=== PATIENT | female | born 1955 | race Caucasian/White ===

== ENCOUNTER 2017-08-01 11:28 | Outpatient (CLI) | payer OTHER ==
[~2017-08-01] VITALS: Ht 162.6 cm; Wt 72.1 kg
[2017-08-01 11:40] VITALS: BP 112/73
[2017-08-01] MEDS ORDERED: ALPR0.5T7 PO (11:44)
[2017-08-01] MEDS ORDERED: AMOX500T2 PO (11:44)
[2017-08-01] MEDS ORDERED: OMEP20TA7 PO (11:44)
[2017-08-01] MEDS ORDERED: TRAZ-28 PO (11:44)
[2017-08-20] MEDS ORDERED: CEPH500C PO (09:38)
[2017-08-20] MEDS ORDERED: HYDR-3812 PO (09:38)
== END 2017-08-01 11:50 | disposition home or self-care (01) ==
LOC: PREOP 11:28
PROVIDERS: ATTEND Podiatrist Foot & Ankle Surgery
DX: Z01.818 Encounter for other preprocedural examination (principal); Z11.2 Encounter for screening for other bacterial diseases; M20.11 Hallux valgus (acquired), right foot; M77.41 Metatarsalgia, right foot
CPT/HCPCS: 87081

== ENCOUNTER 2017-08-20 06:08 | Day surgery (SDC) | payer OTHER ==
[~2017-08-20] VITALS: Ht 162.6 cm; Wt 72.1 kg
[~2017-08-20 06:08] MED LIST: ALPR0.5T7 PO; AMOX500T2 PO; OMEP20TA7 PO; TRAZ-28 PO
[2017-08-20] MEDS ORDERED: ceFAZolin 1,000 MG (ANCEF) VIAL ONE (06:18)
[2017-08-20] MEDS ORDERED: NS (IVPB) 50 ML ONE (06:19)
[2017-08-20] MEDS: LACTATED RINGERS 1,000 ML IV PRN ×2 (06:30→09:15)
[2017-08-20 07:13] VITALS: BP 121/76
[2017-08-20] MEDS ORDERED: SEVOFLURANE (ULTANE) 15 ML INHAL SOLN ONE ×3 (07:13→09:36)
[2017-08-20] MEDS ORDERED: MIDAZOLAM 2 MG/2 ML (VERSED) VIAL ONE (07:13)
[2017-08-20] MEDS ORDERED: DEXAMETHASONE 10 MG/ML (DECADRON) 1 ML VIAL ONE ×2 (07:13→07:18)
[2017-08-20] MEDS ORDERED: proPOfol 200 MG/20 ML (DIPRIVAN) VIAL IV ONE (07:13)
[2017-08-20] MEDS ORDERED: fentaNYL INJECTION 100 MCG/2 ML AMP ONE (07:13)
[2017-08-20] MEDS ORDERED: LIDOCAINE PF 2% 5 ML (XYLOCAINE) VIAL ONE (07:13)
[2017-08-20] MEDS ORDERED: ONDANSETRON 4 MG/2 ML (SDV) Z0FRAN ONE (07:13)
[2017-08-20] MEDS ORDERED: BUPIVACAINE 0.5% 30 ML (SENSORCAINE) VIAL ONE (07:18)
[2017-08-20] MEDS ORDERED: LIDOCAINE 1% INJ 20 ML (XYLOCAINE) VIAL ONE (07:18)
--- NOTE | 2017-08-20 07:37 | Progress Note-Pre Operative ---
Pre-Operative Progress Note H&P Reviewed The H&P was reviewed, patient examined and no changes noted. Date Seen by Provider: Aug 20, 2017 Time Seen by Provider: 07:36 Date H&P Reviewed: Aug 20, 2017 Time H&P Reviewed: 07:36 Pre-Operative Diagnosis: Hallux Valgus, Hypertrophic 2nd Metatarsal, Exostosis , all right foot EMIL IBRAHIM DPM Aug 20, 2017 7:37 am
[2017-08-20] MEDS ORDERED: ceFAZolin 1 GM/NS 50 ML IVPB IV ONE ×2 (08:00)
[2017-08-20] MEDS ORDERED: LACTATED RINGERS 1,000 ML IV ONE (08:55)
[2017-08-20] MEDS ORDERED: LACTATED RINGERS 1,000 ML IV SCH (09:35)
--- NOTE | 2017-08-20 09:35 | Progress Note-Post Operative ---
Post-Operative Progess Note Surgeon (s)/Operator Cavity Pump (s) Surgeon EMIL IBRAHIM DPM Operator Cavity Pump: none Pre-Operative Diagnosis Hallux Valgus, Hypertrophic 2nd Metatarsal, Exostosis, all right foot Post-Operative Diagnosis same Procedure & Operative Findings Date of Procedure 08/20/17 Procedure Performed/Findings Matthieu Bunionectomy, 2nd Metatarsal Osteotomy, Exostectomy, all right foot Anesthesia Type General Estimated Blood Loss Estimated blood loss (mL): Minimal Specimens/Packing Specimens Removed None EMIL IBRAHIM DPM Aug 20, 2017 9:35 am
[2017-08-20] MEDS ORDERED: HYDR-3812 PO (09:38)
[2017-08-20] MEDS ORDERED: CEPH500C PO (09:38)
[2017-08-20] MEDS ORDERED: HYDROcodone/APAP 5 MG/325 MG (LORTAB) TAB PO PRN (09:45)
[2017-08-20] MEDS ORDERED: ONDANSETRON 4 MG/2 ML (SDV) Z0FRAN IVP PRN (09:45)
--- NOTE | 2017-08-20 10:05 | Diagnostic Imaging Report ---
INDICATION: Hallux valgus right foot. 2 postop images of the right foot show changes from osteotomy of the distal aspect of the first metatarsal. There is a pin in the first metatarsal and a small screw present in the head of the second metatarsal. Bones are in good alignment. IMPRESSION: Satisfactory alignment of the right foot following first metatarsal osteotomy. Dictated by: Dictated on workstation # [id number]
[2017-08-20 10:40] VITALS: BP 121/81
[2017-08-20 11:10] VITALS: BP 121/81
[2017-08-20 11:40] VITALS: BP 138/90
--- NOTE | 2017-08-20 11:58 | Physical Therapy Ortho Eval ---
PT Orthopedic Evaluation Type of Surgery Hallux Valgus Prior Level of Function Current Living Status: Other Family Locomotion (Upon Admit): Independent Established Durable Medical Eq: Crutches Subjective Subjective Agrees. Reports she is getting a knee scooter. Entry Into Home: Stairs With Railing Motor Control Motor Control: Motor Control WNL ROM ROM: WFL Strength Strength: WFL Transfer Transfers (B, C, W/C) (FIM): 5 (SBA initially, mod indep at end of treatment) Gait Gait Assistive Device: Crutches Right Lower Extremity: Right Weight Bearing Status RLE: Non Weight Bearing Left Lower Extremity: Left Weight Bearing Status LLE: Weight Bearing/Tolerated Education of WB status; pt demonstrates understanding. Gait (FIM): 5 (SBA with gait with crutches; son present and provides SBA as needed post treatmeht) Distance (FIM): 3=150 ft Summary/Comments Steady on crutches; educated pt on NWB status; as well as safety with crutches. Treatment Rendered Treatment: Gait Train, Step Train Assessment/Goals Goal Time Frame: 1 Visit Safe Ambulation: Yes Training on level surfaces as well as stairs; education on difference walking on carpet as well as safety if crutch tips are wet. discussed use of handrail on steps in conjunction with crutches. Verbalized understanding to all. Educated on knee walker she plans to receive as well. Plan Treatment Plan: Discharge Treatment Duration: 1 visit Visits Per Week: 1 Time Time In: 1130 Time Out: 1155 Total Billed Treatment Time: 25 Billed Treatment Time visit EVL 25 KARLA MARTIN PT Aug 20, 2017 11:58
[2017-08-20 12:00] VITALS: BP 138/90
--- NOTE | 2017-08-20 20:58 | OPERATIVE REPORT ---
DATE OF SERVICE: 08/20/2017 SURGEON: No Brothers DPM PREOPERATIVE DIAGNOSES: 1. Hallux adductus valgus metatarsal primus verus, right. 2. Hypertrophic 2nd metatarsal, right. 3. Exostosis, right 2nd metatarsal cuneiform joint. POSTOPERATIVE DIAGNOSES: 1. Hallux adductus valgus metatarsal primus verus, right. 2. Hypertrophic 2nd metatarsal, right. 3. Exostosis, right 2nd metatarsal cuneiform joint, right. PROCEDURE: 1. Modified Matthieu bunionectomy, right foot. 2. 2nd metatarsal osteotomy, right foot. 3. Exostectomy, right 2nd metatarsal cuneiform joint, right foot. WOUND CLASS: Clean. ANESTHESIA: General. HEMOSTASIS: Pneumatic thigh tourniquet at 250 mmHg. INDICATION: This 62-year-old female presents complaining of a painful right foot. Conservative therapy is met with unsatisfactory results and the patient is agreeable to surgical intervention after risks and complications were discussed at length. No guarantees were extended to the patient and she is willing to proceed. PROCEDURE: The patient was brought back to the operating table, placed in a secure supine position. Appropriate timeout was performed. A pneumatic thigh tourniquet was placed on the right lower extremity over several layers of padding. The right foot was then prepped and draped in the normal sterile manner. The right foot was then elevated and allowed to exsanguinate, after which the tourniquet was inflated to 250 mmHg. Attention was then directed to the dorsal aspect of the right 1st metatarsophalangeal joint where a 5 cm longitudinal linear incision was created. The incision was deepened in the same plane with great care to identify and retract all vital neurovascular structures. All the necessary blood vessels were cauterized as encountered. The incision was deepened down to the capsular tissue where a longitudinal capsulotomy was performed. The capsular tissue was reflected exposing a hypertrophic medial eminence to the 1st metatarsal head, which was resected utilizing a power sagittal saw. Attention was then directed to the dorsal aspect of the 1st metatarsal head where a dorsal prominence was resected with a power sagittal saw. Attention was then directed to the 1st intermetatarsal space where a lateral release was performed to the 1st metatarsophalangeal joint. The conjoined tendon of the adductor hallucis was released as well as the lateral capsulorrhaphy and a release of the fibular sesamoidal ligament. The hallux was then forcibly adducted releasing any additional fibers holding it in its abnormal position. Next, a chevron type osteotomy was performed from medial to lateral with great care to preserve the sesamoidal apparatus. The capital fragment was translocated laterally and fixated in its corrected position utilizing a 0.062 threaded K-wire driven from proximal dorsal to plantar distal across the osteotomy. Excellent bony apposition and fixation was appreciated at this time. The remaining medial eminence to the 1st metatarsal was resected and then smoothed with a power sagittal saw and a power bur. Plantar pressure was applied to the 1st metatarsal noting excellent reduction of the hallux valgus deformity as well as the metatarsal primus varus. The wound was then flushed with copious amounts of normal saline and closure was performed in layers. Deep closure was performed with 3-0 Vicryl, superficial with 4-0 Vicryl, skin closed with 4-0 Prolene in a horizontal mattress type stitch . Attention was then directed to the dorsal aspect of the 2nd metatarsophalangeal joint where a 3 cm longitudinal linear incision was created. The incision was deepened in the same plane with great care to identify and retract all vital neurovascular structures. Only necessary blood vessels were cauterized as encountered. The incision was deepened down to the extensor tendon and extensor garrett. A longitudinal capsulotomy was performed just medial to the extensor tendons. This exposed the hypertrophic head of the 2nd metatarsal. Utilizing a power sagittal saw, a Senthil-type osteotomy was then performed. The capital fragment was translocated proximally and fixated in its corrected position utilizing a 2.0 snap-off screw of 12 mm of length. The wound was flushed with copious amounts of normal saline. The excess bone to the 2nd metatarsal head was removed with a rongeur and contoured with a hand rasp. The wound was flushed once again and closure was then performed in layers. Deep closure was performed with 4-0 Vicryl, superficial with 4-0 Vicryl and skin closure with 4-0 Prolene in a horizontal mattress type stitch. Attention was then directed to the dorsal aspect of the 2nd metatarsal cuneiform joint where a dorsal spur was palpated. Preoperative marking of the dorsalis pedis pulse indicated the incision would be medial to the vital vascular structure. The incision was approximately 2 cm in length and longitudinal for proximal to distal. The incision was deepened in the same plan with great care to identify and retract all vital neurovascular structures. Only necessary blood vessels were cauterized as encountered. The incision was carried down to bone lateral to the extensor hallucis longus. The exostosis was palpated and resected utilizing an osteotome and mallet and was further contoured and smoothed with a power rasp. The wound was flushed with copious amounts of normal saline. The wound was then closed in layers. Deep closure was performed with 3-0 Vicryl, superficial with 4-0 Vicryl, and skin closure with 4-0 Prolene in a horizontal mattress type stitch. Postoperative injection consisted of 20 mL of 0.5% Marcaine injected in a local infusion to the surgical site. Postoperative injection also included 10 mg of dexamethasone, 1/2 of which was to the exostosis site as well as to the 1st intermetatarsal space. Postoperative dressings consisted of Betadine soaked adaptic, sterile 4 x 4's, sterile Kerlix, all secured with a Coban wrap. The patient tolerated the anesthesia and procedure well and was transported from the operating room to the recovery area, vital signs stable, and vascular status intact to all digits of the right foot. Postoperative instructions were given to the patient as well as prescriptions. She was given prescription for Keflex and Vicodin. She is to be [id number] on the right lower extremity with crutches or a scooter. We will see her back in the office in 10 days' period of time, or sooner if necessary. Job ID: [id number] DocumentID: [id number] Dictated Date: 08/20/2017 09:47:25 Mold Shaker Date: 08/20/2017 20:57:48 Dictated By: SANTI ELLISON
== END 2017-08-20 12:00 | disposition home or self-care (01) ==
LOC: SDC 06:08
PROVIDERS: ATTEND Podiatrist Foot & Ankle Surgery
DX: M20.11 Hallux valgus (acquired), right foot (principal); M89.371 Hypertrophy of bone, right ankle and foot; M85.871 Other specified disorders of bone density and structure, right ankle and foot; G47.00 Insomnia, unspecified; K21.9 Gastro-esophageal reflux disease without esophagitis; Z79.899 Other long term (current) drug therapy
CPT/HCPCS: 73620

== ENCOUNTER → 2017-10-12 | Outpatient (CLI) | payer OTHER ==
[~2017-10-12] MED LIST changes: +CEPH500C PO; +HYDR-3812 PO
== END ==
LOC: RAD 15:30
PROVIDERS: ATTEND Nurse Practitioner Family
DX: Z12.31 Encounter for screening mammogram for malignant neoplasm of breast (principal)
CPT/HCPCS: 77067

== ENCOUNTER → 2017-10-22 | Outpatient (CLI) | payer OTHER ==
--- NOTE | 2017-10-22 12:22 | Diagnostic Imaging Report ---
PROCEDURE: MRI left upper extremity without contrast. TECHNIQUE: Multiplanar, multisequence non contrast-enhanced MRI of the left upper extremity was accomplished. INDICATION: Left shoulder pain. FINDINGS: There is no os acromiale or Hill-Sachs deformity. The long head biceps tendon appears to be within its groove. The proximal aspect of the long head biceps tendon demonstrates a longitudinal linear signal abnormality seen on oblique coronal image #11 suggestive of partial longitudinal tear. There is a full-thickness tear with 7 mm of retraction in the supraspinatus anterior fibers and prominent intrasubstance partial tear in the infraspinatus distal tendon. There is a laterally downsloping configuration of the acromion. The acromioclavicular joint demonstrates mild hypertrophy with no significant inferior osteophytes. The subscapularis tendon demonstrates mild thickening distally suggestive of tendinosis. The labrum is not well evaluated on this study without intra-articular contrast. The muscle bulk and signal around the shoulder is normal. There is a 4 mm cyst seen in the subchondral region of the acromion at the AC joint, probably degenerative. No significant marrow signal abnormality is seen otherwise. IMPRESSION: 1. Full-thickness tear of the distal supraspinatus tendon anterior fibers with 7 mm of retraction. 2. Prominent partial tear in the rest of the supraspinatus tendon and in the infraspinatus tendon. 3. Longitudinal linear increased signal along the proximal aspect of the long head biceps tendon suggestive of a longitudinal partial tear. Dictated by: Dictated on workstation # [id number]
== END ==
LOC: RAD 09:32
PROVIDERS: ATTEND Orthopaedic Surgery
DX: M75.102 Unspecified rotator cuff tear or rupture of left shoulder, not specified as traumatic (principal)
CPT/HCPCS: 73221

== ENCOUNTER → 2018-03-14 | Outpatient (CLI) | payer OTHER ==
[~2018-03-14] MED LIST changes: +ACHD5005 PO; -HYDR-3812 PO; +TRAZ-189 PO; -TRAZ-28 PO
--- NOTE | 2018-03-14 11:44 | Diagnostic Imaging Report ---
INDICATION: Osteopenia. Bone mineral analysis lumbar spine and both hips was performed. The bone mineral density of the lumbar spine is 0.924 with a T score of -2.3. Bone mineral density left femoral neck is 0.767 with T score -2.0. Bone mineral density right femoral neck 0.705 with T score of -2.4. IMPRESSION: Findings consistent with osteopenia of the lumbar spine and bilateral femoral necks. Dictated by: Dictated on workstation # [id number]
== END ==
LOC: RAD 10:30
PROVIDERS: ATTEND Family Medicine
DX: M85.88 Other specified disorders of bone density and structure, other site (principal); Z78.0 Asymptomatic menopausal state
CPT/HCPCS: 77080

== ENCOUNTER → 2018-12-18 | Outpatient (CLI) | payer OTHER ==
--- NOTE | 2018-12-18 18:59 | Diagnostic Imaging Report ---
INDICATION: Routine screening. Comparison is made with prior mammogram from 10/12/2017 and 10/04/2016. 2-D and 3-D bilateral screening mammography was performed with a Computer Aided Detection (CAD) system. FINDINGS: Scattered fibroglandular densities are identified bilaterally. The parenchymal pattern is stable. No mass or malignant appearing microcalcifications are seen. Axillae are unremarkable. IMPRESSION: No mammographic features suspicious for malignancy are identified. ACR BI-RADS Category 1: Negative. Result letter will be mailed to the patient. Note: At least 10% of breast cancer is not imaged by mammography. Dictated by: Dictated on workstation # [id number]
== END ==
LOC: RAD 11:29
PROVIDERS: ATTEND Nurse Practitioner Family
DX: Z12.31 Encounter for screening mammogram for malignant neoplasm of breast (principal)
CPT/HCPCS: 77067

== ENCOUNTER → 2020-01-16 | Outpatient (CLI) | payer OTHER ==
[~2020-01-16] MED LIST changes: -TRAZ-189 PO; +TRZ50T PO
--- NOTE | 2020-01-16 13:43 | Diagnostic Imaging Report ---
EXAMINATION: Digital mammogram bilateral screening. The current study was also evaluated with a Computer Aided Detection (CAD) system. 3-D tomosynthesis was also performed and reviewed. INDICATION: Screening. This study was compared to the prior exams of 12/18/2018, 10/12/2017, and 10/04/2016. At this time, there are no current complaints. FINDINGS: There are scattered fibroglandular densities in both breasts which could obscure a lesion. When compared to the prior study, there has been no significant change. There is no primary or secondary sign of malignancy noted. The 3D tomographic views also fail to show any sign of malignancy. IMPRESSION: There is no evidence of malignancy. ACR BI-RADS Category 1: Negative. Result letter will be mailed to the patient. Note: At least 10% of breast cancer is not imaged by mammography. Dictated by: Dictated on workstation # [id number]
== END ==
LOC: RAD 09:57
PROVIDERS: ATTEND Family Medicine
DX: Z12.31 Encounter for screening mammogram for malignant neoplasm of breast (principal)
CPT/HCPCS: 77067

== ENCOUNTER → 2020-04-27 | Outpatient (CLI) | payer OTHER ==
--- NOTE | 2020-04-27 14:09 | Diagnostic Imaging Report ---
INDICATION: Screening for osteoporosis. COMPARISON: 03/14/2018. FINDINGS: The bone mineral density of the spine and hips was measured. T score for the spine is -2.3. This is no different than on the prior exam. The total T score for the left hip is -1.5 and for the right hip -1.7. On the prior exam, the respective T scores were -1.7 and -2.0. The T score for the left femoral neck is -2.0. This is unchanged when compared to the prior exam. The T score for the right femoral neck is -2.1 as opposed to -2.4 previously. AP Spine L1-L4: [BMD (g/cm2): 0.925] [T-Score: -2.3] [Z-Score: -1.2] [BMD Previous: 0.924] [BMD % Change: 0.1] LT Hip Neck: [BMD (g/cm2): 0.760] [T-Score: -2.0] [Z-Score: -0.8] LT Hip Total: [BMD (g/cm2):0.813] [T-Score:-1.5] [Z-Score: -0.7] [BMD Previous: 0.795] [BMD % Change: 2.3] RT Hip Neck: [BMD (g/cm2):0.747] [T-Score:-2.1] [Z-Score:-0.9] RT Hip Total: [BMD (g/cm2):0.787] [T-score:-1.7] [Z-Score:-0.9] [BMD Previous:0.758] [BMD % Change:3.8] *Indicates significant change from prior examination based on 95% confidence level. World Health Organization criteria for BMD interpretation classify patients as Normal (T-score at or above -1.0), Osteopenic (T-score between -1.0 and -2.5) or Osteoporotic (T-score at or below -2.5). LIMITATIONS AND MODIFICATION: None. FRACTURE RISK (FRAX SCORE): The ten year probability of (%): Major Osteoporotic Fracture: [17.5] Hip Fracture: [2.7] IMPRESSION: 1. The bone mineral density in the spine is unchanged when compared to the prior exam. The T score value does indicate severe osteopenia. 2. There has been a slight increase in the bone mineral density of the hips. The T score values still remain within the range of osteopenia. 3. See below National Osteoporosis Foundation guidelines on when to potentially initiate pharmacologic therapy. Based on the National Osteoporosis Foundation Guidelines, pharmacologic treatment should be initiated in any of the following, unless clinical conditions suggest otherwise: * Any patient with prior fragility fracture of the hip or vertebrae. A spine fracture indicates 5X risk for subsequent spine fracture and 2X risk for subsequent hip fracture. * Osteoporosis (T-score <-2.5). * Postmenopausal women and men age 50 and older with low bone mass/osteopenia (T-score between -1.0 and -2.5) by DXA and 10-year major osteoporotic fracture greater than 20% or a 10-year probability of hip fracture greater than 3%. These fracture risks are supplied above in the FRAX score, if applicable. * Clinician judgement and/or patient preferences may indicate treatment for people with 10-year fracture probabilities above or below these levels. Dictated by: Dictated on workstation # [id number]
== END ==
LOC: RAD 13:20
PROVIDERS: ATTEND Family Medicine
DX: Z13.820 Encounter for screening for osteoporosis (principal); M85.89 Other specified disorders of bone density and structure, multiple sites
CPT/HCPCS: 77080

== ENCOUNTER → 2021-02-18 | Outpatient (CLI) | payer OTHER ==
--- NOTE | 2021-02-18 10:20 | Diagnostic Imaging Report ---
EXAMINATION: Bilateral screening mammogram with CAD. INDICATION: Screening. COMPARISON: This study was compared to the prior exams of 01/16/2020, 12/18/2018, and 10/12/2017. PERSONAL HISTORY: At this time, there are no current complaints. FINDINGS: There are scattered fibroglandular densities in both breasts which could obscure a lesion. Overall, there does not appear to have been any significant change when compared to the prior exam. No primary or secondary sign of malignancy is noted. IMPRESSION: There is no radiographic evidence for malignancy. ACR BI-RADS Category 1: Negative. Result letter will be mailed to the patient. Note: At least 10% of breast cancer is not imaged by mammography. Dictated by: Dictated on workstation # [id number]
== END ==
LOC: RAD 08:55
PROVIDERS: ATTEND Nurse Practitioner Family
DX: Z12.31 Encounter for screening mammogram for malignant neoplasm of breast (principal)
CPT/HCPCS: 77063; 77067

== ENCOUNTER → 2022-02-20 | Outpatient (CLI) | payer OTHER ==
--- NOTE | 2022-02-20 15:40 | Diagnostic Imaging Report ---
INDICATION: Routine screening. COMPARISON is made with prior mammograms from 02/18/2021 and 01/16/2020. 2-D and 3-D bilateral screening mammography was performed with CAD. Scattered fibroglandular densities are identified bilaterally. The parenchymal pattern is stable. No mass or malignant-appearing microcalcifications are seen. Axillae are unremarkable. IMPRESSION: BI-RADS Category 1 No mammographic features suspicious for malignancy are identified. ACR BI-RADS Category 1: Negative. Result letter will be mailed to the patient. Note: At least 10% of breast cancer is not imaged by mammography. Dictated by: Dictated on workstation # [id number]
== END ==
LOC: RAD 14:30
PROVIDERS: ATTEND Nurse Practitioner Family
DX: Z12.31 Encounter for screening mammogram for malignant neoplasm of breast (principal)
CPT/HCPCS: 77063; 77067

== ENCOUNTER → 2022-07-14 | Outpatient (CLI) | payer MEDICARE ==
[~2022-07-14] MED LIST changes: +OMEP20TA56 PO; -OMEP20TA7 PO
--- NOTE | 2022-07-14 09:17 | Diagnostic Imaging Report ---
INDICATION: Abdominal pain. PROCEDURE: Ultrasound abdomen complete. TECHNIQUE: Multiple real-time grayscale images were obtained of the abdomen in various projections. FINDINGS: Liver is normal in size at 16 cm. The portal vein is patent and shows normal direction of flow. No liver mass is detected. Gallbladder is surgically absent. There is no biliary ductal dilatation. Pancreas is unremarkable. Spleen is normal in size at 10.3 cm. Abdominal aorta is nonaneurysmal. IVC is patent. Right kidney measures 10.1 cm in length and the left kidney measures 10.6 cm in length. No calculi or hydronephrosis is identified. There is no ascites. IMPRESSION: Status post cholecystectomy. No acute abnormality is detected. Dictated by: Dictated on workstation # [id number]
--- NOTE | 2022-07-14 09:48 | Diagnostic Imaging Report ---
INDICATION: Palpable abdominal aorta. Proximal abdominal aorta measures 1.8 cm AP by 2.0 cm transverse. The mid abdominal aorta measures 1.7 cm AP by 1.6 cm transverse. The distal abdominal aorta measures 1.3 cm AP by 1.5 cm transverse. The right iliac measures 0.8 x 0.8 cm and the left iliac measures 0.9 x 0.9 cm. IMPRESSION: No evidence of abdominal aortic aneurysm. Dictated by: Dictated on workstation # [id number]
== END ==
LOC: RAD 07:38
PROVIDERS: ATTEND Family Medicine
DX: R10.9 Unspecified abdominal pain (principal); Z90.49 Acquired absence of other specified parts of digestive tract
CPT/HCPCS: 76700; 76775

== ENCOUNTER 2022-07-27 05:37 | Outpatient (CLI) | payer MEDICARE ==
[~2022-07-27] VITALS: Ht 160 cm; Wt 72.1 kg
== END 2022-07-27 10:59 | disposition home or self-care (01) ==
LOC: PREOP 05:37
PROVIDERS: ATTEND Surgery
DX: Z01.818 Encounter for other preprocedural examination (principal)

== ENCOUNTER 2022-08-07 08:15 | Day surgery (SDC) | payer MEDICARE ==
[~2022-08-07] VITALS: Ht 160 cm; Wt 72.1 kg
[2022-08-07 08:20] VITALS: BP 106/56
[2022-08-07] MEDS ORDERED: LACTATED RINGERS 1,000 ML IV STA (08:34)
--- NOTE | 2022-08-07 08:35 | Progress Note-Pre Operative ---
Pre-Operative Progress Note Date of Available H&P: Jul 25, 2022 Date H&P Reviewed: Aug 07, 2022 Time H&P Reviewed: 08:33 History & Physical: H&P Reviewed, Patient Examed, No changes noted Pre-Operative Diagnosis: Epigastric pain ELMA AVENDANO DO Aug 07, 2022 08:35
[2022-08-07] MEDS ORDERED: HURRICAINE EXT TUBE (BENZOCAINE) XX PRN (08:45)
[2022-08-07] MEDS ORDERED: PROPOFOL INJECTION 50 ML IV ONE (10:43)
[2022-08-07] MEDS ORDERED: MIDAZOLAM 2 MG/2 ML (VERSED) VIAL ONE (10:43)
--- NOTE | 2022-08-07 10:57 | Progress Note-Post Operative ---
Post-Operative Progess Note Surgeon (s)/Electrical Maintenance Supervisor (s) Surgeon ELMA AVENDANO DO Electrical Maintenance Supervisor: none Pre-Operative Diagnosis Epigastric pain Post-Operative Diagnosis Gastritis with bleeding Hiatal hernia Procedure & Operative Findings Date of Procedure 08/07/22 Procedure Performed/Findings EGD with bx PROCEDURE NOTE: After informed consent was obtained, the patient was brought to the endoscopy suite, placed in bed in left lateral decubitus position. She was administered IV sedation by the STREETCAR DISPATCHER who then monitored vitals the entire time, heart rate, blood pressure and pulse ox and the scope was inserted down the mouth through the esophagus into the stomach. On the way down, noted some mild esophagitis, took a picture, pushed into the stomach, pushed past the antrum into the duodenum. Duodenum looked good. Pulled back and did a biopsy of antrum which showed some gastritis with bleeding. Then retroflexed the scope and saw 1-2cm hiatal hernia, took a picture of this and then pulled the scope into the GE junction. Took another picture of the hiatal hernia and then did a biopsy of the GE junction. I also had done a biopsy of the body of the stomach. Pushed the scope back into the stomach, suctioned all the air out of the stomach. At this point pulled the scope up the esophagus and out the mouth. The patient tolerated the procedure, and she recovered in endoscopy suite. Anesthesia Type IV sedation by STREETCAR DISPATCHER Estimated Blood Loss Estimated blood loss (mL): scant Specimens/Packing Specimens Removed antral bx body of stomach GE jxn ELMA AVENDANO DO Aug 07, 2022 10:57
--- NOTE | 2022-08-07 10:57 | Endoscopy Discharge Instruct ---
Endo Procedure/Findings Findings 1.: Gastritis 2.: Hiatal Hernia Discharge Instructions - Activity: You might feel a little sleepy until tomorrow. This is due to the medicine you received to relax you. Until tomorrow, you should: NOT drive a car, operate machinery or power tools. NOT drink any alcoholic beverages. NOT make any important decisions or sign importortant papers. Do not return to work until tomorrow, unless otherwise instructed. Resume previous activities tomorrow. Diet: Start by taking liquids. If you tolerate liquids, advance to solid food. 1.: EGD in 1 year Notify Physician - If you experience excessive bleeding, unusual abdominal pain, fever, or chest pain, contact your doctor immediately. ELMA AVENDANO DO Aug 07, 2022 10:57
[2022-08-07 11:00] VITALS: BP 93/54
[2022-08-07 11:05] VITALS: BP 104/59
[2022-08-07 11:39] VITALS: BP 104/59
--- NOTE | 2022-08-07 14:07 | Anesthesia-General Post-Op ---
MAC Patient Condition Mental Status/LOC: Same as Preop Cardiovascular: Satisfactory Nausea/Vomiting: Absent Respiratory: Satisfactory Pain: Controlled Complications: Absent Post Op Complications Complications None Follow Up Care/Instructions Patient Instructions None needed. Anesthesiology Discharge Order Discharge Order Patient is doing well, no complaints, stable vital signs, no apparent adverse anesthesia problems. No complications reported per nursing. TIN SHI CRNA Aug 07, 2022 14:07
== END 2022-08-07 11:50 | disposition home or self-care (01) ==
LOC: ENDO 08:15
PROVIDERS: ATTEND Surgery
DX: K29.71 Gastritis, unspecified, with bleeding (principal); K44.9 Diaphragmatic hernia without obstruction or gangrene; K21.00 Gastro-esophageal reflux disease with esophagitis, without bleeding; Z79.899 Other long term (current) drug therapy

== ENCOUNTER → 2022-09-01 | Outpatient (CLI) | payer MEDICARE ==
[~2022-09-01] MED LIST changes: +CATHETER FLUSH 10 ML SYR IVP PRN
--- NOTE | 2022-09-01 13:30 | Diagnostic Imaging Report ---
INDICATION: Epigastric pain. This patient has a history of cholecystectomy. TECHNIQUE: Patient received 5.3 mCi technetium-99m Choletec intravenously, and sequential imaging over the abdomen was performed carried out to 45 minutes. FINDINGS: Activity accumulates within the central intrahepatic biliary ducts scintigraphically suggestive of their at least mild distention. This is a common finding as a reservoir effect with physiologic dilatation post cholecystectomy. Activity spills through the extrahepatic duct into the proximal bowel without evidence for its obstruction. There is no activity extravasation to suggest a biliary leak. No extraluminal contrast accumulation. IMPRESSION: Unremarkable HIDA scan post cholecystectomy. Dictated by: Dictated on workstation # [id number]
== END ==
LOC: CARD 10:00
PROVIDERS: ATTEND Surgery
DX: R10.13 Epigastric pain (principal); Z90.49 Acquired absence of other specified parts of digestive tract
CPT/HCPCS: 78226; A9537

== ENCOUNTER → 2023-02-26 | Outpatient (CLI) | payer MEDICARE ==
[~2023-02-26] MED LIST changes: -CATHETER FLUSH 10 ML SYR IVP PRN
--- NOTE | 2023-02-28 11:44 | Diagnostic Imaging Report ---
INDICATION: Routine screening. Comparison is made with prior mammogram from 02/20/2022 and 02/18/2021. 2-D and 3-D bilateral screening mammography was performed with CAD. CAD is utilized. The current study was also evaluated with a Computer Aided Detection (CAD) system. Scattered fibroglandular densities are identified bilaterally. The parenchymal pattern is stable. No mass or malignant-appearing microcalcifications are seen. Axillae are unremarkable. IMPRESSION: BI-RADS Category 1 No mammographic features suspicious for malignancy are identified. ACR BI-RADS Category 1: Negative. Result letter will be mailed to the patient. Note: At least 10% of breast cancer is not imaged by mammography. Dictated by: Dictated on workstation # [id number]
== END ==
LOC: RAD 08:23
PROVIDERS: ATTEND Nurse Practitioner Family
DX: Z12.31 Encounter for screening mammogram for malignant neoplasm of breast (principal)
CPT/HCPCS: 77063; 77067